=== PATIENT | male | born 1980 | race American Indian/Alaskan Native ===

== ENCOUNTER 2017-09-26 06:07 | Emergency (ER) | payer SELFPAY ==
[2017-09-26 07:23] VITALS: BP 130/88
--- NOTE | 2017-09-26 07:34 | XRay Report ---
FINAL REPORT PROCEDURE: XR CHEST ROUTINE 2V TECHNIQUE: PA and lateral chest radiographs were obtained. CPT 27091 HISTORY: Shortness of breath COMPARISON: No prior studies are available for comparison. FINDINGS: Heart: Normal. Mediastinum/Vessels: Normal. Lungs/Pleural space: There are no infiltrates, effusions or pneumothoraces.. Bony thorax: No acute osseous abnormality. Other: IMPRESSION: Normal heart and lungs there.
[2017-09-26 07:52] LABS: Basophils % (Auto) 0.7 % (0.0-1.8); Eosinophils % (Auto) 0.7 % (0.0-4.3); Hematocrit 40.5 % (35.5-45.6); Hemoglobin 13.9 gm/dl (11.8-15.2); Mean Corpuscular HGB Conc 34 % (32-34); Mean Corpuscular Hemoglobin 34 pg (28-32); Mean Corpuscular Volume 97 fl (84-94); Platelet Count 135 K/mm3 (140-440); Red Blood Count 4.15 M/mm3 (3.65-5.03); Red Cell Distribution Width 13.6 % (13.2-15.2); White Blood Count 5.3 K/mm3 (4.5-11.0)
[2017-09-26 07:57] LABS: Anion Gap 17 mmol/L; BUN/Creatinine Ratio 15; Blood Urea Nitrogen 15 mg/dL (9-20); Calcium 8.8 mg/dL (8.4-10.2); Carbon Dioxide 26 mmol/L (22-30); Chloride 97.4 mmol/L (98-107); Glucose 86 mg/dL (75-100); Potassium 3.8 mmol/L (3.6-5.0); Sodium 137 mmol/L (137-145)
[2017-09-26] MEDS ORDERED: TORADOL IV ONE (08:24)
[2017-09-26] MEDS ORDERED: TYLENOL PO ONE (08:24)
--- NOTE | 2017-09-26 08:25 | Emergency Department Report ---
ED Chest Pain HPI - General Chief Complaint: Chest Pain Stated Complaint: CP/SOB Time Seen by Provider: 09/26/17 08:07 Source: patient, EMS (ems notes not available at time of chart dictation), RN notes reviewed Mode of arrival: Stretcher Limitations: No Limitations - History of Present Illness Initial Comments: This is a 37-year-old male who was previously unknown to this provider. Presents the ER with a complaint of left-sided chest pain. The chest pain does not radiate to the back, arms or neck. It increases when twisting and when he takes a deep breath. There is no vomiting or diaphoresis. There is no leg pain. There is no leg swelling. No recent road trips or airplane trips greater than 4 hours. No recent aspirin use. Patient does admit to consuming cocaine a few days ago, however this was only a recreational ingestion. MD Complaint: chest pain -: Gradual, hour(s) Onset: during rest Pain Location: left chest Pain Radiation: none Severity: moderate Severity scale (0 -10): 8 Quality: aching Consistency: intermittent Improves With: rest Worsens With: exertion, inspiration, movement re: denies: nausea, vomting, diaphoresis, sense of impending doom Other Symptoms: denies: cough, fever, syncope, rash Aspirin use within the Past 7 Days: (0) No - Related Data On Oral Contraceptives: No Previous Rx's Medication Instructions Recorded Last Taken Type Acetaminophen [Tylenol Arthritis] 650 mg PO Q6HR PRN #30 tablet.er 09/26/17 Unknown Rx Ibuprofen [Motrin] 600 mg PO Q8H PRN #30 tablet 09/26/17 Unknown Rx Allergies Allergy/AdvReac Type Severity Reaction Status Date / Time Penicillins Allergy Unknown Verified 09/26/17 06:13 Heart Score - HEART Score History: Slightly suspicious EKG: Non-specific Age: < 45 Risk factors: 1-2 risk factors Troponin: < normal limit HEART Score: 2 - Critical Actions Critical Actions: 0-3 pts:0.9-1.7%risk of adverse cardiac event.Candidate for discharge ED Review of Systems ROS: Stated complaint: CP/SOB Other details as noted in HPI Constitutional: denies: diaphoresis, fever Eyes: denies: vision change ENT: denies: epistaxis Respiratory: denies: wheezing Cardiovascular: chest pain Gastrointestinal: denies: vomiting Genitourinary: as per HPI Musculoskeletal: as per HPI Skin: as per HPI Neurological: as per HPI Psychiatric: denies: homicidal thoughts, suicidal thoughts ED Past Medical Hx - Past Medical History Previous Medical History?: No - Surgical History Past Surgical History?: No - Social History Smoking Status: Current Every Day Smoker Substance Use Type: None - Medications Home Medications: Home Medications Medication Instructions Recorded Confirmed Last Taken Type Acetaminophen [Tylenol Arthritis] 650 mg PO Q6HR PRN #30 tablet.er 09/26/17 Unknown Rx Ibuprofen [Motrin] 600 mg PO Q8H PRN #30 tablet 09/26/17 Unknown Rx ED Physical Exam - General Limitations: No Limitations General appearance: alert, in no apparent distress - Head Head exam: Present: atraumatic, normocephalic - Eye Eye exam: Present: normal appearance, EOMI. Absent: nystagmus - ENT ENT exam: Present: normal exam, normal orophraynx, mucous membranes moist, normal external ear exam - Neck Neck exam: Present: normal inspection, full ROM - Respiratory Respiratory exam: Present: normal lung sounds bilaterally. Absent: respiratory distress - Cardiovascular Cardiovascular Exam: Present: regular rate, normal rhythm, normal heart sounds. Absent: systolic murmur, diastolic murmur, rubs, gallop - GI/Abdominal GI/Abdominal exam: Present: soft, normal bowel sounds. Absent: distended, tenderness, guarding, rebound, rigid, pulsatile mass - Rectal Rectal exam: Present: deferred - Extremities Exam Extremities exam: Present: normal inspection, full ROM, normal capillary refill , other (there is no palpable cord. There is a negative Homans sign.). Absent : pedal edema, joint swelling, calf tenderness - Back Exam Back exam: Present: normal inspection, full ROM. Absent: tenderness, CVA tenderness (R), paraspinal tenderness, vertebral tenderness - Neurological Exam Neurological exam: Present: alert, oriented X3, CN II-XII intact, normal gait, other (Extraocular movements intact. Tongue midline. No facial droop. Facial sensation intact to light touch in the V1, V2, V3 distribution bilaterally. 5 and 5 strength in 4 extremities.. Sensation is intact to light touch in 4 extremities.). Absent: motor sensory deficit - Psychiatric Psychiatric exam: Present: normal affect, normal mood - Skin Skin exam: Present: warm, dry, intact, normal color. Absent: rash ED Course Vital Signs 09/26/17 09/26/17 09/26/17 06:18 06:21 06:31 Temperature Pulse Rate 74 68 Respiratory 20 13 12 Rate Blood Pressure 130/91 Blood Pressure [Left] O2 Sat by Pulse 98 100 Oximetry 09/26/17 09/26/17 09/26/17 06:38 06:45 07:00 Temperature 98.4 F Pulse Rate Respiratory Rate Blood Pressure 130/91 130/88 Blood Pressure [Left] O2 Sat by Pulse 100 100 Oximetry 09/26/17 09/26/17 09/26/17 07:15 07:26 08:39 Temperature 97.7 F Pulse Rate 89 70 Respiratory 10 L Rate Blood Pressure 130/88 Blood Pressure 130/88 [Left] O2 Sat by Pulse 100 100 Oximetry - Reevaluation(s) Reevaluation #1: 09/26/17 09:38 Differential diagnosis, including the not limited to: Pericarditis, myocarditis , pleuritis, myocarditis, pneumonia, acute coronary syndrome Assessment and plan: 37-year-old male, low risk by heart score, low risk bite to be score, no pulmonary illicit DVT risk factors, low risk by well's criteria , perc negative. Objectively speaking, EKG suggests early repolarization versus pericarditis. A bedside ultrasound demonstrates good coordinated left ventricular extremity, with no large obvious effusion. X-ray of the chest is negative. Troponin is negative 1. Case discussed with cardiology, Marlen Xavier , patient will follow-up with outpatient cardiology, he is medicated with appropriate medication. Reevaluation #2: 09/26/17 11:20 Troponin negative 2, patient sleeping comfortably. Patient will be discharged with instructions to follow-up with outpatient cardiology. Return precautions reviewed. JOEY score - Joey Score Age > 65: (0) No Aspirin use within the Past 7 Days: (0) No 3 or more CAD Risk Factors: (0) No 2 or more Angina events in past 24 hrs: (0) No Known CAD with more than 50% Stenosis: (0) No Elevated Cardiac Markers: (0) No ST Deviation Greater than 0.5mm: (0) No JOEY Score: 0 ED Medical Decision Making - Lab Data Result diagrams: 09/26/17 07:24 09/26/17 07:28 Vital Signs 09/26/17 09/26/1709/26/17 06:18 06:21 06:31 Temperature Pulse Rate 74 68 Respiratory 20 13 12 Rate Blood Pressure 130/91 Blood Pressure [Left] O2 Sat by Pulse 98 100 Oximetry 09/26/17 09/26/17 09/26/17 06:38 06:45 07:00 Temperature 98.4 F Pulse Rate Respiratory Rate Blood Pressure 130/91 130/88 Blood Pressure [Left] O2 Sat by Pulse 100 100 Oximetry 09/26/17 09/26/17 09/26/17 07:15 07:26 08:39 Temperature 97.7 F Pulse Rate 89 70 Respiratory 10 L Rate Blood Pressure 130/88 Blood Pressure 130/88 [Left] O2 Sat by Pulse 100 100 Oximetry Lab Results 09/26/17 09/26/17 09/26/17 Range/Units 07:24 07:28 07:28 WBC 5.3 (4.5-11.0) K/mm3 RBC 4.15 (3.65-5.03) M/mm3 Hgb 13.9 (11.8-15.2) gm/dl Hct 40.5 (35.5-45.6) % MCV 97 H (84-94) fl MCH 34 H (28-32) pg MCHC 34 (32-34) % RDW 13.6 (13.2-15.2) % Plt Count 135 L (140-440) K/mm3 Lymph % (Auto) 48.3 H (13.4-35.0) % [place] % (Auto) 11.5 H (0.0-7.3) % Eos % (Auto) 0.7 (0.0-4.3) % Baso % (Auto) 0.7 (0.0-1.8) % Lymph # 2.6 (1.2-5.4) K/mm3 [place] # 0.6 (0.0-0.8) K/mm3 Eos # 0.0 (0.0-0.4) K/mm3 Baso # 0.0 (0.0-0.1) K/mm3 Seg Neutrophils % 38.8 L (40.0-70.0) % Seg Neutrophils # 2.1 (1.8-7.7) K/mm3 Sodium 137 (137-145) mmol/L Potassium 3.8 (3.6-5.0) mmol/L Chloride 97.4 L (98-107) mmol/L Carbon Dioxide 26 (22-30) mmol/L Anion Gap 17 mmol/L BUN 15 (9-20) mg/dL Creatinine 1.0 (0.8-1.5) mg/dL Estimated GFR > 60 ml/min BUN/Creatinine Ratio 15 % Glucose 86 (75-100) mg/dL Calcium 8.8 (8.4-10.2) mg/dL Total Creatine Kinase 133 (55-170) units/L Troponin T < 0.010 (0.00-0.029) ng/mL - EKG Data -: EKG Interpreted by Ga EKG shows normal: sinus rhythm Rate: normal - EKG Data When compared to previous EKG there are: previous EKG unavailable 09/26/17 09:38 EKG #1 demonstrates normal sinus, 71 bpm, normal axis, normal intervals, ST elevation in V3, V4, V5 and V6, suggestive of early repolarization versus pericarditis. Repeat EKG is unchanged - Radiology Data Radiology results: report reviewed, image reviewed Critical care attestation.: If time is entered above; I have spent that time in minutes in the direct care of this critically ill patient, excluding procedure time. ED Disposition Clinical Impression: Chest pain Disposition: DC-01 TO HOME OR SELFCARE Is pt being admited?: No Does the pt Need Aspirin: No Condition: Stable Instructions: Chest Pain (ED) Additional Instructions: Rest and avoid heavy lifting. Avoid strenuous physical activity. Take the pain medications as directed. Contact cardiology the following phone number: [phone], and follow up with a exchange clerk, Dr. Ulrich or any exchange clerk covering for him within the next 3-5 days. Follow-up with the primary care doctor within the next month. Return to the ER right away with new pain, worsened pain, migration of pain, fevers, chills, lethargy, irritability, projectile vomiting, confusion, change in mental status , inability to tolerate liquid feeds., Prescriptions: Acetaminophen [Tylenol Arthritis] 650 mg PO Q6HR PRN #30 tablet.er PRN Reason: Pain Ibuprofen [Motrin] 600 mg PO Q8H PRN #30 tablet PRN Reason: Pain Referrals: PRIMARY CARE, [Primary Care Provider] - 3-5 Days TARA AKBAR MD [Staff Physician] - 3-5 Days [facility] [Provider Group] - 3-5 Days [facility] [Provider Group] - 3-5 Days [facility] [Provider Group] - 3-5 Days Forms: Work/School Release Form(ED)
== END 2017-09-26 12:13 | disposition home or self-care (01) ==
LOC: ED 06:07
DX: R07.89 Other chest pain (principal); F17.200 Nicotine dependence, unspecified, uncomplicated; Z88.0 Allergy status to penicillin
CPT/HCPCS: 36415; 71020; 80048; 82550; 84484; 85025; 93005; 93010; 96374; 99285; J1885

== ENCOUNTER 2018-11-15 21:48 | Emergency (ER) | payer SELFPAY ==
[2018-11-15 22:43] LABS: Basophils % (Auto) 0.4 % (0.0-1.8); Eosinophils % (Auto) 0.6 % (0.0-4.3); Hematocrit 44.3 % (35.5-45.6); Hemoglobin 15.3 gm/dl (11.8-15.2); Lymphocytes # (Auto) 2.2 K/mm3 (1.2-5.4); Lymphocytes % (Auto) 41.7 % (13.4-35.0); Mean Corpuscular HGB Conc 35 % (32-34); Mean Corpuscular Volume 96 fl (84-94); Monocytes # (Auto) 0.7 K/mm3 (0.0-0.8); Monocytes % (Auto) 12.2 % (0.0-7.3); Platelet Count 191 K/mm3 (140-440); Red Cell Distribution Width 13.8 % (13.2-15.2)
[2018-11-15 22:58] LABS: BUN/Creatinine Ratio 13; Blood Urea Nitrogen 13 mg/dL (9-20); Hemolysis Index 40
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
--- NOTE | 2018-11-16 00:46 | Cat Scan Report ---
FINAL REPORT PROCEDURE: XR CHEST 1V AP TECHNIQUE: Chest radiograph anteroposterior view. CPT 25152 HISTORY: chest pain COMPARISON: Prior study 09/26/2017 FINDINGS: Heart: Normal size. Mediastinum/Vessels: Normal. Lungs/Pleural space: Clear.. Bony thorax: No acute osseous abnormality. Life support devices: None. IMPRESSION: Negative exam..
--- NOTE | 2018-11-16 00:48 | Cat Scan Report ---
FINAL REPORT PROCEDURE: CT HEAD/BRAIN WO CON TECHNIQUE: Computerized tomography of the head was performed without contrast material. HISTORY: syncope COMPARISON: No prior studies are available for comparison. FINDINGS: Brain: Brain density appears normal. No evidence of intracranial hemorrhage. No parenchymal hemorrh age, mass lesions or mass effect are seen. No abnormal extraxial fluid collects or masses are seen. T here is subtle nonspecific mineralization of the basal ganglia per Ventricles: Ventricles are normal size and are midline. Bone Windows: No evidence of skull fracture. Paranasal sinuses: There is minimal patchy mucosal disease in the ethmoid air cells. Visualized porti ons of the paranasal sinuses otherwise appear clear. Mastoid air cells: Clear IMPRESSION: Negative unenhanced CT scan of the brain.
[2018-11-16] MEDS ORDERED: MORPHINE IV ONE (01:09)
[2018-11-16] MEDS ORDERED: ZOFRAN IV ONE (01:09)
[2018-11-16 01:36] LABS: Amphetamine Screen,Urine PRESUMPTIVE NEGATIVE; Benzodiazepines Screen,Urine PRESUMPTIVE NEGATIVE; Cocaine Screen,Urine PRESUMPTIVE NEGATIVE; Methadone Screen,Urine PRESUMPTIVE NEGATIVE; Opiate Screen,Urine PRESUMPTIVE NEGATIVE
[2018-11-16 01:49] LABS: Cannabinoid Screen,Urine PRESUMPTIVE POSITIVE
[2018-11-16 05:43] VITALS: BP 116/80
== END 2018-11-16 05:43 | disposition home or self-care (01) ==
LOC: ED 21:48
DX: I31.9 Disease of pericardium, unspecified (principal); R55 Syncope and collapse; R42 Dizziness and giddiness; F17.200 Nicotine dependence, unspecified, uncomplicated; F12.10 Cannabis abuse, uncomplicated; Z88.0 Allergy status to penicillin; Z79.899 Other long term (current) drug therapy
CPT/HCPCS: 36415; 70450; 71045; 71275; 80048; 80307; 82550; 84484; 85025; 93005; 93010; 96374; 96375; 99285; G0480; J2270; J2405; Q9967; 80320